=== PATIENT | female | born 1975 | race African-American/Black ===

== ENCOUNTER 2020-05-29 15:40 | Day surgery (SDC) | payer OTHER ==
[2020-05-25 14:06] VITALS: BMI 37.5
[2020-05-29 11:16] VITALS: BP 143/97; PULSE 78
[2020-05-29 11:22] VITALS: TEMP 98
[~2020-05-29 15:40] MED LIST: LACTATED RINGERS SOLUTION 1,000 ML IV SCH; ONDANSETRON 4 MG/2 ML VIAL IVPUSH PRN; PROMETHAZINE HCL 25 MG/1 ML VIAL IVPUSH PRN; oxyCODONE HCL 5 MG TABLET PO PRN
== END 2020-05-29 15:41 | disposition home or self-care (01) ==
LOC: JASU-SURG 15:40
PROVIDERS: ATTEND Obstetrics & Gynecology
DX: Z53.8 Procedure and treatment not carried out for other reasons (principal)
CPT/HCPCS: 36415; 84703; 86850; 86900; 86901

== ENCOUNTER 2020-09-14 04:39 | Day surgery (SDC) | payer OTHER ==
[2020-09-13 13:28] VITALS: BMI 37.8
[2020-09-14] MEDS ORDERED: ROCURONIUM BROMIDE 50 MG/5 ML SYRINGE ONE (08:57)
[2020-09-14] MEDS ORDERED: LIDOCAINE HCL/PF 2% SDV 5ML VIAL ONE (08:57)
[2020-09-14] MEDS ORDERED: PROPOFOL 20 ML ONE ×2 (08:58→10:14)
[2020-09-14] MEDS ORDERED: MIDAZOLAM HCL 2 MG/2 ML SINGLE DOSE VIAL ONE ×2 (08:58→12:58)
[2020-09-14] MEDS ORDERED: BUPIVACAINE HCL 50 ML ONE (09:52)
[2020-09-14] MEDS ORDERED: ceFAZolin SODIUM 1 GM VIAL IVPB ONE (10:25)
[2020-09-14] MEDS ORDERED: ceFAZolin SODIUM 1 GM VIAL ONE (10:27)
[2020-09-14] MEDS ORDERED: ACETAMINOPHEN INJECTION 100 ML IVPB ONE (11:01)
[2020-09-14] MEDS ORDERED: BUPIVACAINE HCL/PF 0.5% (5 MG/ML) 30 ML VIAL IJ ONE (11:15)
[2020-09-14] MEDS ORDERED: oxyCODONE HCL 5 MG TABLET PO PRN ×2 (12:24)
[2020-09-14] MEDS ORDERED: ONDANSETRON 4 MG/2 ML VIAL IVPUSH PRN (12:24)
[2020-09-14] MEDS ORDERED: HYDROmorphone HCl 2 MG/ML VIAL ONE (12:25)
[2020-09-14] MEDS ORDERED: LACTATED RINGERS SOLUTION 1,000 ML IV SCH (12:30)
[2020-09-14] MEDS: HYDROmorphone HCL CARPU-JECT 2 MG/1 ML DISP.SYRIN IVPUSH ONE ×4 (12:33→12:58)
[2020-09-14] MEDS ORDERED: MIDAZOLAM HCL 2 MG/2 ML SINGLE DOSE VIAL IVPUSH ONE (14:23)
[2020-09-14 14:40] VITALS: BP 122/60; PULSE 64; TEMP 98.8
== END 2020-09-14 15:35 | disposition home or self-care (01) ==
LOC: JASU-SURG 04:39
PROVIDERS: ATTEND Obstetrics & Gynecology
PROC: 0UB64ZZ Excision of Left Fallopian Tube, Percutaneous Endoscopic Approach (ICD-10-PCS; 2020-09-14)
PROC: 0UB14ZZ Excision of Left Ovary, Percutaneous Endoscopic Approach (ICD-10-PCS; principal; 2020-09-14 09:30)
DX: D25.9 Leiomyoma of uterus, unspecified (principal); N70.11 Chronic salpingitis
CPT/HCPCS: 81025; 94760; J0131